=== PATIENT | male | born 1985 | race Caucasian/White ===

== ENCOUNTER 2020-12-11 11:39 | Emergency (ER) | payer OTHER ==
[~2020-12-11] VITALS: Ht 182.9 cm; Wt 117.9 kg
[2020-12-11] MEDS ORDERED: MOMETASONE FURO15 G2 TOP (12:46)
[2020-12-11] MEDS ORDERED: AMOX-CLAV 875-1 EACH PO (12:46)
[2020-12-11] MEDS ORDERED: MUPIROCIN22 GM TOP (12:46)
== END 2020-12-11 12:54 | disposition home or self-care (01) ==
LOC: ER 11:39
DX: L03.012 Cellulitis of left finger (principal)